=== PATIENT | female | born 1960 | race Caucasian/White ===

== ENCOUNTER 2023-01-10 09:30 | Outpatient (RCR) | payer OTHER, SELFPAY | END 2023-02-15 09:56 | disposition home or self-care (01) | PROVIDERS: Visit Provider Orthopaedic Surgery Sports Medicine | DX: M75.31 Calcific tendinitis of right shoulder (principal); Z51.89 Encounter for other specified aftercare | CPT/HCPCS: 97035; 97110; 97140; 97161; 97535 ==

== ENCOUNTER 2023-02-07 07:38 | Emergency (ER) | payer OTHER, SELFPAY ==
[2023-02-07] VITALS (35 sets, daily range): BP systolic 131–192; BP diastolic 58–115; PULSE 74–122; RESP 16–20; TEMP 37.2; O2SAT 88–100; BMI 44.9
--- NOTE | 2023-02-07 08:21 | ED.PSYCH ---
HPI - Psych General Chief Complaint: Psychiatric Problem/Disorder Stated Complaint: mental health Time Seen by Provider: 02/07/23 08:07 History of Present Illness HPI Narrative: Pt is a 62 year old woman who presents with extreme anxiety and thoughts of harming herself. Pt has not physically hurt herself today and has not been using illicit drugs or alcholol. Pt states that her symptoms are worse as she recently resigned from her job with the [employer]. Pt states that she has not attempted suicide previously but was hospitalized at a psychiatric facility. Pt is very upset and tearful. She has no other medical complaints. Pt states that several weeks ago her doctor stopped her Effexor. Pt who is very supportive is with her today. Related Data Home Medications Medication Instructions Recorded Confirmed hydrochlorothiazide 25 mg tablet 25 mg PO QDAY 11/30/22 11/30/22 losartan 100 mg tablet 100 mg PO QDAY 11/30/22 11/30/22 metoprolol succinate 50 mg ea PO 11/30/22 11/30/22 tablet,extended release 24 hr Previous Rx's Medication Instructions Recorded lorazepam 0.5 mg tablet (Ativan) 0.5 mg PO DAILY PRN anxiety #10 02/07/23 tabs venlafaxine 37.5 mg 37.5 mg PO DAILY Anxiety #30 caps 02/07/23 capsule,extended release 24 hr (Effexor XR) Allergies Allergy/AdvReac Type Severity Reaction Status Date / Time No Known Drug Allergies Allergy Verified 02/07/23 07:47 Review of Systems Status of ROS: Reports: 10 or more systems reviewed and unremarkable except as noted in History and below PFSH PFS Medical History Arthritis Depression History of bone cyst History of fracture of finger Hypertension Sarcoidosis Surgical History History of appendectomy History of section S/P ORIF (open reduction internal fixation) fracture (03/17/03) S/P ORIF (open reduction internal fixation) fracture Status post hardware removal (09/29/08) Social History Smoking Status: Never smoker Do you use any of these nicotine containing products: None Second hand tobacco smoke exposure: No How often do you have a drink containing alcohol: monthly or less How many standard drinks containing alcohol do you have on a typical day: 1 or 2 How often do you have six or more drinks on one occasion: Never AUDIT-C Alcohol total score: 1 Non-prescribed substance use: denies use service: No Exam Narrative: Exam Narrative: EXAM GENERAL: Patient appears very emotional. EYES: No scleral icterus. THYROID: no thyroid nodules or thyromegaly. LYMPH: No supraclavicular or cervical lymphadenopathy. SKIN: Visible skin seen during exam normal or with benign process only. EXT: No dependent lower extremity pedal edema. HEART: Regular rate and rhythm with no murmurs, rubs, or gallops. LUNGS: Clear to auscultation bilaterally with no crackles or wheezes. ABD: Soft, non tender, non distended. PSYCH: Good eye contact, speech is not pressured. Const: Vital Signs, click to edit/add: Vital Signs - 24 hr 02/07/23 07:47 02/07/23 08:08 02/07/23 09:51 Temperature 99 F Pulse Rate 110 H Pulse Rate [Pulse Oximeter] 102 H 98 Respiratory Rate 20 Blood Pressure 147/83 H Blood Pressure [Ri ght Upper Arm] 192/115 H 174/105 H Pulse Oximetry 98 98 97 Oxygen Delivery Me thod Room Air Room Air Oxygen Flow Rate 02/07/23 09:52 02/07/23 10:00 02/07/23 10:03 Temperature Pulse Rate 104 H 97 98 Pulse Rate [Pulse Oximeter] Respiratory Rate Blood Pressure 167/84 H Blood Pressure [Ri ght Upper Arm] Pulse Oximetry 97 96 88 Oxygen Delivery Me thod Oxygen Flow Rate 02/07/23 10:15 02/07/23 10:30 02/07/23 10:32 Temperature Pulse Rate 74 79 80 Pulse Rate [Pulse Oximeter] Respiratory Rate Blood Pressure 158/70 H Blood Pressure [Ri ght Upper Arm] Pulse Oximetry 91 97 97 Oxygen Delivery Me thod Oxygen Flow Rate 02/07/23 10:45 02/07/23 11:00 02/07/23 11:02 Temperature Pulse Rate 90 91 85 Pulse Rate [Pulse Oximeter] Respiratory Rate Blood Pressure 161/92 H Blood Pressure [Ri ght Upper Arm] Pulse Oximetry 98 99 99 Oxygen Delivery Me thod Oxygen Flow Rate 02/07/23 14:12 02/07/23 11:03 02/07/23 11:15 Temperature Pulse Rate 89 99 Pulse Rate [Pulse Oximeter] Respiratory Rate 16 Blood Pressure Blood Pressure [Ri ght Upper Arm] Pulse Oximetry 88 99 99 Oxygen Delivery Me thod Nasal Cannula Nasal Cannula Oxygen Flow Rate 2 2 02/07/23 11:30 02/07/23 11:32 02/07/23 11:45 Temperature Pulse Rate 94 92 87 Pulse Rate [Pulse Oximeter] Respiratory Rate Blood Pressure 167/58 H Blood Pressure [Ri ght Upper Arm] Pulse Oximetry 99 100 100 Oxygen Delivery Me thod Oxygen Flow Rate 02/07/23 12:00 02/07/23 12:02 02/07/23 12:15 Temperature Pulse Rate 89 95 85 Pulse Rate [Pulse Oximeter] Respiratory Rate Blood Pressure 161/77 H Blood Pressure [Ri ght Upper Arm] Pulse Oximetry 100 100 100 Oxygen Delivery Me thod Oxygen Flow Rate 02/07/23 12:30 02/07/23 12:32 02/07/23 12:45 Temperature Pulse Rate 91 92 93 Pulse Rate [Pulse Oximeter] Respiratory Rate Blood Pressure 131/100 H Blood Pressure [Ri ght Upper Arm] Pulse Oximetry 100 99 93 Oxygen Delivery Me thod Oxygen Flow Rate 02/07/23 13:00 02/07/23 13:02 02/07/23 13:15 Temperature Pulse Rate 98 104 H 96 Pulse Rate [Pulse Oximeter] Respiratory Rate Blood Pressure 166/98 H Blood Pressure [Ri ght Upper Arm] Pulse Oximetry 100 99 99 Oxygen Delivery Me thod Oxygen Flow Rate 02/07/23 13:30 02/07/23 13:32 02/07/23 13:45 Temperature Pulse Rate 120 H 122 H 89 Pulse Rate [Pulse Oximeter] Respiratory Rate Blood Pressure 192/109 H Blood Pressure [Ri ght Upper Arm] Pulse Oximetry 99 100 100 Oxygen Delivery Me thod Oxygen Flow Rate 02/07/23 14:00 02/07/23 14:02 Temperature Pulse Rate 94 89 Pulse Rate [Pulse Oximeter] Respiratory Rate Blood Pressure 164/93 H Blood Pressure [Ri ght Upper Arm] Pulse Oximetry 98 100 Oxygen Delivery Me thod Oxygen Flow Rate Course Course Hospital Course: Pt seen and examined. Labs collected. Mental health consult requested. Reevaluation(s) Reevaluation #1: DEC assessment clears pt to go home. Labs reassuring. Time: 14:24 Vital Signs Vital signs: Initial Vital Signs Temperature 99 F 02/07/23 07:47 Temperature Source Temporal Artery Scan 02/07/23 07:47 Pulse Rate 102 H 02/07/23 07:47 Pulse Rhythm 02/07/23 07:47 Blood Pressure 192/115 H 02/07/23 07:47 Blood Pressure Mean 140 02/07/23 07:47 Blood Pressure Position Supine 02/07/23 07:47 Pulse Oximetry 98 02/07/23 07:47 Oxygen Delivery Method 02/07/23 07:47 Vital Signs Temperature 99 F 02/07/23 07:47 Pulse Rate 102 H 02/07/23 07:47 Blood Pressure 192/115 H 02/07/23 07:47 Pulse Oximetry 98 02/07/23 07:47 Oxygen Delivery Method 02/07/23 07:47 Temperature 99 F 02/07/23 07:47 Pulse Rate 89 02/07/23 14:02 Respiratory Rate 16 02/07/23 11:03 Blood Pressure 164/93 H 02/07/23 14:02 Pulse Oximetry 88 02/07/23 14:12 Oxygen Delivery Method 02/07/23 14:12 Oxygen Flow Rate 2 02/07/23 14:12 MDM - Psych MDM Narrative Medical decision making narrative: Pt presents with extreme anxiety and depression after stopping her Effexor. Pt's labs look fine and [facility] has made a safety plan. Pt's Effexor XR restarted as well as short term Ativan. Pt will follow up with Psych and PCP in the next week. Differential Diagnosis Differential diagnosis: Likely acute psychosis, chronic schizophrenia, suicidal ideation, bipolar disorder, depression, drug-induced psychotic disorder and acute anxiety Medical Records Attestation: I reviewed the patient's medical records. Lab Data Labs: Lab Results 02/07/23 02/07/23 02/07/23 Range/Units 08:29 08:29 08:50 WBC 6.95 (4.50-11.00) K/uL RBC 4.57 (4.00-5.20) m/uL Hgb 13.0 (12.0-16.0) gm/dL Hct 39.3 (33.0-51.0) % MCV 86 (80-100) fL MCH 28 (26-34) pg MCHC 33 (32-36) gm/dL RDW Coeff of Nidia 12.9 (11.5-15.5) % Plt Count 293 (140-440) K/uL Neut % (Auto) 79.5 H (42.0-72.0) % Lymph % (Auto) 14.5 L (20-44) % [place] % (Auto) 4.3 (0.0-11.0) % Eos % (Auto) 1.3 (0.0-7.0) % Baso % (Auto) 0.3 (0.0-3.0) % Neut # (Auto) 5.50 (1.7-7.0) K/uL Lymph # (Auto) 1.00 (0.90-2.90) K/uL [place] # (Auto) 0.30 (0.00-0.90) K/UL Eos # (Auto) 0.09 (0.00-0.50) K/uL Baso # (Auto) 0.02 (0.00-0.30) K/uL Sodium 139 (135-149) mmol/L Potassium 4.0 (3.6-5.1) mmol/L Chloride 108 (96-114) mmol/L Carbon Dioxide 25 (20-32) mmol/L BUN 14 (7-30) mg/dL Creatinine 1.0 (0.5-1.5) mg/dL Estimated Creat Clear 59.60 Estimated GFR 64 ml/min Glucose 117 H (60-115) mg/dL Calcium 9.5 (8.4-10.6) mg/dL Total Bilirubin 0.7 (0.1-1.5) mg/dL AST 25 (12-35) U/L ALT 24 (4-35) U/L Alkaline Phosphatase 79 (40-150) U/L Total Protein 8.0 (6.0-8.3) g/dL Albumin 4.3 (3.3-5.0) g/dL Salicylates < 1.0 L (1.0-10) mg/dL Urine Opiates Screen Negative (Negative) Ur Oxycodone Screen Negative (Negative) Urine Methadone Screen Negative (Negative) Ur Propoxyphene Screen Negative (Negative) Acetaminophen < 10.0 L (10.0-30.0) ug/mL Ur Barbiturates Screen Negative (Negative) U Tricyclic Antidepress Negative (Negative) Ur Phencyclidine Scrn Negative (Negative) Ur Amphetamines Screen Negative (Negative) U Methamphetamines Scrn Negative (Negative) U Benzodiazepines Scrn Negative (Negative) Urine Cocaine Screen Negative (Negative) U Marijuana (THC) Screen Negative (Negative) Ur Drug Screen Comment See Note Ethyl Alcohol < 0.01 L (0.01-0.03) % SARS-CoV-2 (PCR) (Negative) 02/07/23 Range/Units 08:50 WBC (4.50-11.00) K/uL RBC (4.00-5.20) m/uL Hgb (12.0-16.0) gm/dL Hct (33.0-51.0) % MCV (80-100) fL MCH (26-34) pg MCHC (32-36) gm/dL RDW Coeff of Nidia (11.5-15.5) % Plt Count (140-440) K/uL Neut % (Auto) (42.0-72.0) % Lymph % (Auto) (20-44) % [place] % (Auto) (0.0-11.0) % Eos % (Auto) (0.0-7.0) % Baso % (Auto) (0.0-3.0) % Neut # (Auto) (1.7-7.0) K/uL Lymph # (Auto) (0.90-2.90) K/uL [place] # (Auto) (0.00-0.90) K/UL Eos # (Auto) (0.00-0.50) K/uL Baso # (Auto) (0.00-0.30) K/uL Sodium (135-149) mmol/L Potassium (3.6-5.1) mmol/L Chloride (96-114) mmol/L Carbon Dioxide (20-32) mmol/L BUN (7-30) mg/dL Creatinine (0.5-1.5) mg/dL Estimated Creat Clear Estimated GFR ml/min Glucose (60-115) mg/dL Calcium (8.4-10.6) mg/dL Total Bilirubin (0.1-1.5) mg/dL AST (12-35) U/L ALT (4-35) U/L Alkaline Phosphatase (40-150) U/L Total Protein (6.0-8.3) g/dL Albumin (3.3-5.0) g/dL Salicylates (1.0-10) mg/dL Urine Opiates Screen (Negative) Ur Oxycodone Screen (Negative) Urine Methadone Screen (Negative) Ur Propoxyphene Screen (Negative) Acetaminophen (10.0-30.0) ug/mL Ur Barbiturates Screen (Negative) U Tricyclic Antidepress (Negative) Ur Phencyclidine Scrn (Negative) Ur Amphetamines Screen (Negative) U Methamphetamines Scrn (Negative) U Benzodiazepines Scrn (Negative) Urine Cocaine Screen (Negative) U Marijuana (THC) Screen (Negative) Ur Drug Screen Comment Ethyl Alcohol (0.01-0.03) % SARS-CoV-2 (PCR) Negative SARS-CoV-2 (Negative) Discharge Plan Discharge Clinical Impression: Anxiety Condition: Stable Instructions: Anxiety (ED) Additional Instructions: Follow up per DEC's recommendations Effexor XR and Ativan sent to your pharmacy PCP follow up in the next week Activity Level: No Restrictions Discharge Diet: Regular Prescriptions: New venlafaxine [Effexor XR] 37.5 mg capsule,extended release 24hr 37.5 mg PO DAILY Qty: 30 2RF lorazepam [Ativan] 0.5 mg tablet 0.5 mg PO DAILY PRN (Reason: anxiety) Qty: 10 0RF No Action losartan 100 mg tablet 100 mg PO QDAY Label Comments: TAKE 1 TABLET BY MOUTH ONCE DAILY hydrochlorothiazide 25 mg tablet 25 mg PO QDAY Label Comments: TAKE 1 TABLET BY MOUTH ONCE DAILY metoprolol succinate 50 mg tablet extended release 24 hr PO Label Comments: TAKE 1 TABLET BY MOUTH ONCE DAILY Follow Up/Referrals: Provider,Not a Local [Primary Care Provider] - Stand Alone Forms: [employer] Info Instructions
[2023-02-07 08:42] LABS: Basophils Absolute Auto 0.02 K/uL (0.00-0.30); Basophils Percent Auto 0.3 % (0.0-3.0); Eosinophils Absolute Auto 0.09 K/uL (0.00-0.50); Eosinophils Percent Auto 1.3 % (0.0-7.0); Hematocrit 39.3 % (33.0-51.0); Immature Granulocytes Abs Auto 0.01 K/uL (0.00-0.30); Immature Granulocytes Pct Auto 0.1 %; Lymphocytes Percent Auto 14.5 % (20-44); Mean Corpuscular HGB Conc 33 gm/dL (32-36); Mean Corpuscular Hemoglobin 28 pg (26-34); Mean Corpuscular Volume 86 fL (80-100); Monocytes Percent Auto 4.3 % (0.0-11.0); Neutrophils Percent Auto 79.5 % (42.0-72.0); Platelet Count* 293 K/uL (140-440); RDW Coefficient of Variation % 12.9 % (11.5-15.5); Red Blood Count 4.57 m/uL (4.00-5.20); White Blood Count* 6.95 K/uL (4.50-11.00)
[2023-02-07 08:45] LABS: Slide Review Reflex No
[2023-02-07 08:50] LABS: Albumin* 4.3 g/dL (3.3-5.0); Chloride* 108 mmol/L (96-114)
[2023-02-07 08:51] LABS: Sodium* 139 mmol/L (135-149)
[2023-02-07 08:53] LABS: Alanine Aminotransferase* 24 U/L (4-35); Alkaline Phosphatase* 79 U/L (40-150); Aspartate Amino Transferase* 25 U/L (12-35); Bilirubin Total* 0.7 mg/dL (0.1-1.5); Blood Urea Nitrogen* 14 mg/dL (7-30); Carbon Dioxide* 25 mmol/L (20-32); Estimated Glomerular Filt Rate 64 ml/min
[2023-02-07 08:54] LABS: Calcium* 9.5 mg/dL (8.4-10.6); Glucose* 117 mg/dL (60-115)
[2023-02-07 08:59] LABS: Acetaminophen* < 10.0 ug/mL (10.0-30.0); Ethanol* < 0.01 % (0.01-0.03); Salicylate* < 1.0 mg/dL (1.0-10)
[2023-02-07 09:05] LABS: Amphetamine Screen Urine Negative (Negative); Barbiturate Screen Urine Negative (Negative); Benzodiazepines Screen Urine Negative (Negative); Cannabinoid Screen Urine Negative (Negative); Cocaine Screen Urine Negative (Negative); Methadone Screen Urine Negative (Negative); Methamphetamines Screen Urine Negative (Negative); Opiate Screen Urine Negative (Negative); Oxycodone Screen Urine Negative (Negative); Phencyclidine Screen Urine Negative (Negative); Tricyclic Antidepressant Urine Negative (Negative)
[2023-02-07 09:37] LABS: SARS PCR* Negative SARS-CoV-2 (Negative)
[2023-02-07] MEDS: LORazepam 1 MG TABLET PO (09:41)
--- NOTE | 2023-02-07 10:05 | ED.NURSE ---
Pt having extreme tremors, crying and hyperventilating. MD notified. PO ativan given. VSS with RR in the 30s, HR 75-85, oxygen 97% on RA, and BP 167/84
== END 2023-02-07 14:57 | disposition home or self-care (01) ==
PROVIDERS: Emergency Provider Internal Medicine
DX: F41.9 Anxiety disorder, unspecified (principal)
CPT/HCPCS: 36415; 80053; 80143; 80179; 80306; 82077; 85025; 87635; 99283; 99284; A9270